=== PATIENT | female | born 1975 | race Two or more races ===

== ENCOUNTER → 2024-08-17 | Outpatient (CLI) | payer MEDICAID, SELFPAY ==
--- NOTE | 2024-08-17 15:30 | XR_ITS ---
Examination: Screening digital mammography, bilateral Computer aided detection 3-D breast Tomosynthesis, bilateral Date and time of exam: August 17, 2024 1516 hours No priors Indication: Screening Technique: Nonmagnified MLO, CC views of the breasts to been obtained, reconstructed from 3-D Tomosynthesis images. R2 computer aided detection program utilized for evaluation of suspicious masses and/or abnormal calcifications. 3-D Tomosynthesis images obtained. Findings: Scattered areas of fibroglandular density. 20 mm focal asymmetry upper outer right breast partially indistinct margins Impression: BI-RADS Category 0: Incomplete: Need additional imaging evaluation Recommend follow-up spot tomographic views of 20 mm focal asymmetry upper outer right breast as well as right breast sonography to the workup
== END | disposition home or self-care (01) ==
LOC: CDIM 15:01
PROVIDERS: Referring Provider Physician Assistant; Visit Provider Physician Assistant
DX: Z12.31 Encounter for screening mammogram for malignant neoplasm of breast (principal); N64.89 Other specified disorders of breast
CPT/HCPCS: 77063; 77067

== ENCOUNTER → 2024-09-30 | Outpatient (CLI) | payer MEDICAID, SELFPAY ==
--- NOTE | 2024-09-30 15:00 | XR_ITS ---
Examination: Breast ultrasound, unilateral, right Date and time of exam: September 30, 2024 1503 hours INDICATIONS: Mammogram August 17, 2024 20 mm focal asymmetry upper outer right breast Technique: Real-time conley scale ultrasonographic imaging performed right breast including all 4 quadrants as well as nipple retroareolar and axillary region. Findings: 1:00 nodule circumscribed 6 x 4 mm IMPRESSION: BI-RADS Category 3: Probably benign findings One additional 6 month right breast sonogram follow-up needed to document stability of 1:00 nodule right breast
--- NOTE | 2024-09-30 15:30 | XR_ITS ---
Examination: Diagnostic digital mammography, unilateral, right Computer aided detection 3-D breast Tomosynthesis, unilateral Date and time of exam: September 30, 2024 1438 hours INDICATIONS: Mammogram August 17, 2024 20 mm focal asymmetry upper right breast Technique: Nonmagnified MLO, CC views of the right breast have been obtained, reconstructed from 3-D Tomosynthesis images. R2 computer aided detection program utilized for evaluation of suspicious masses and/or abnormal calcifications. 3-D Tomosynthesis images obtained. Findings: Scattered areas of fibroglandular density Stable nodule upper right breast circumscribed Impression: BI-RADS category 3: Probably benign findings Recommend 6 month bilateral mammography follow-up
== END | disposition home or self-care (01) ==
PROVIDERS: PCP Physician Assistant; Referring Provider Physician Assistant; Visit Provider Physician Assistant
DX: R92.331 Mammographic heterogeneous density, right breast (principal); N63.12 Unspecified lump in the right breast, upper inner quadrant
CPT/HCPCS: 76641; 77061; 77065; G0279